=== PATIENT | male | born 1945 | race Caucasian/White ===

== ENCOUNTER 2017-11-23 12:24 | Emergency (ER) | payer MEDICARE, OTHER ==
[2017-11-23 12:40] VITALS: BP 140/71
[2017-11-23] MEDS ORDERED: Albuterol/Ipratropium NEB.SOL* Albuterol 2.5 MG/Ipratropium 0.5 MG 3 ML INH ONE (12:56)
--- NOTE | 2017-11-23 13:00 | ED ---
Respiratory - HPI Summary HPI Summary: 72 female presents with cough and shortness breath for the past 3 days. He states he has history of chronic bronchitis. He is nonsmoker. He denies any chest pain. No pain or swelling in calf muscles. No sore throat. He states that he has been wheezing for the past couple days. He states is worse with exertion. He does not have an inhaler. He states wheezing is worse at night. He states if catches the symptoms early he normally doesn't have many issues. has history of HTN and DM. - History of Current Complaint Chief Complaint: UCRespiratory Stated Complaint: COUGH CONGESTION Time Seen by Provider: 11/23/17 12:46 Pain Intensity: 5 - Allergy/Home Medications Allergies/Adverse Reactions: Allergies Allergy/AdvReac Type Severity Reaction Status Date / Time No Known Allergies Allergy Verified 11/23/17 12:40 Home Medications: Home Medications Aspirin 81 mg CHEW TAB* [Aspirin Low Dose TAB*] 81 mg PO DAILY 11/23/17 [ History Confirmed 11/23/17] Losartan/Hydrochlorothiazide [Losartan-Hctz 100-12.5 mg Tab] 1 mg PO DAILY WITH MEAL 11/23/17 [History Confirmed 11/23/17] Rosuvastatin Calcium [Crestor] 20 mg PO DAILY WITH MEAL 11/23/17 [History Confirmed 11/23/17] celeCOXIB CAP* [CeleBREX CAP*] 100 mg PO DAILY 11/23/17 [History Confirmed 11/23] hydroCHLOROthiazide [Hydrochlorothiazide] 12.5 mg PO DAILY WITH MEAL 11/23/17 [ History Confirmed 11/23/17] PMH/Surg Hx/FS Hx/Imm Hx Endocrine/Hematology History: Reports: Hx Diabetes - type II Denies: Hx Thyroid Disease Cardiovascular History: Reports: Hx Hypertension Respiratory History: Denies: Hx Asthma GI History: Denies: Hx Ulcer - Surgical History Surgery Procedure, Year, and Place: rt ankle 06/12/14 fusion fibula graft. pt. type 2 dibetic. bilat hip replacements Infectious Disease History: No Infectious Disease History: Denies: Hx Hepatitis, Hx Human Immunodeficiency Virus (HIV), History Other Infectious Disease, Traveled Outside the [place] in Last 30 Days - Family History Known Family History: Positive: None Negative: Respiratory Disease - Social History Alcohol Use: Occasionally Substance Use Type: Reports: None Smoking Status (MU): Never Smoked Tobacco Review of Systems Negative: Fever Negative: Chest Pain Positive: Shortness Of Breath, Cough All Other Systems Reviewed And Are Negative: Yes Physical Exam Triage Information Reviewed: Yes Vital Signs On Initial Exam: Initial Vitals Temp Pulse Resp BP Pulse Ox 97.9 F 86 22 140/71 97 11/23/17 12:35 11/23/17 12:35 11/23/17 12:35 11/23/17 12:35 11/23/17 12:35 Vital Signs Reviewed: Yes Appearance: Positive: Well-Appearing Skin: Positive: Warm, Dry Head/Face: Positive: Normal Head/Face Inspection Eyes: Positive: Normal, EOMI, LUZ MARIA, Conjunctiva Clear ENT: Positive: Normal ENT inspection, Pharynx normal, TMs normal Respiratory/Lung Sounds: Positive: Breath Sounds Present, Wheezes Cardiovascular: Positive: Normal, RRR Abdomen Description: Positive: Nontender, Soft Bowel Sounds: Positive: Present Musculoskeletal: Positive: Normal Neurological: Positive: Normal Psychiatric: Positive: Normal Diagnostics - Vital Signs Vital Signs Temp Pulse Resp BP Pulse Ox 11/23/17 12:35 97.9 F 86 22 140/71 97 - Laboratory Lab Statement: Any lab studies that have been ordered have been reviewed, and results considered in the medical decision making process. - Radiology chest Xray Interpretation: No Acute Changes Radiology Interpretation Completed By: Radiologist Re-Evaluation - Re-Evaluation First Eval Re-Evaluation Time: 13:29 Change: Improved Comment: slight wheeze after treatment Disposition - Course Course Of Treatment: 72 female presents with cough and shortness breath for the past 3 days. He states he has history of chronic bronchitis. He is nonsmoker. He denies any chest pain. No pain or swelling in calf muscles. No sore throat. He states that he has been wheezing for the past couple days. He states is worse with exertion. He does not have an inhaler. He states wheezing is worse at night. on exam heart RRR. wheezing present. gave duoneb and improved. chest xray shows NAD. will give steriod and inhaler and azithrymoycin. told steriod will increase blood sugar. will have follow up with primary about blood pressure as has dx of htn. patient understand and agrees with plan. - Differential Dx - Cardiopulmonary Differential Diagnoses - Cardiopulmonary: Bronchitis, CHF, Influenza, Lower Resp Infection - Diagnoses Provider Diagnoses: Bronchitis Discharge - Sign-Out/Discharge Documenting (check all that apply): Patient Departure - Discharge Plan Condition: Good Disposition: HOME Prescriptions: Albuterol HFA INHALER* [Ventolin HFA Inhaler*] 2 puff INH Q4H PRN #1 mdi PRN Reason: Wheezing Azithromycin TAB* [Zithromax TAB (Z-GO) 250 mg #6 tabs] 2 tab PO .TODAY, THEN 1 DAILY #1 go predniSONE TAB* [Deltasone TAB*] 50 mg PO DAILY #4 tab Patient Education Materials: Acute Bronchitis (ED) Referrals: Julieta Mensah MD [Primary Care Provider] - Additional Instructions: Use inhaler up to two puffs every 4 hours for cough and wheezing Take steroid once a day for 5 days Take antibiotic two tablets day one, one tablet day 2-5 Take Tylenol for pain every 6 hours Follow up with primary within 5 days Return to ED if develop severe shortness of breath, worsening chest pain, or any new or worsening symptoms - Billing Disposition and Condition Condition: GOOD Disposition: Home Attestation Statement User Type: Provider - I was available for consult. This patient was seen by the [facility]. The patient was not presented to, seen by, or examined by me. -Cyril
--- NOTE | 2017-11-23 13:20 | RAD ---
Indication: Cough, shortness of breath. 2 views of the chest including dual energy PA views demonstrate no mediastinal shift. Heart is of normal size and configuration. When compared to previous exam of August 20, 2011 no significant change is noted. IMPRESSION: No active disease is noted. No changes noted since August 20, 2011.
[2017-11-23] MEDS ORDERED: methylPREDNISolone 125 MG* 2 ML VIAL IM ONE (13:27)
== END 2017-11-23 13:42 | disposition home or self-care (01) ==
LOC: UCEAST 12:24
DX: J40 Bronchitis, not specified as acute or chronic (principal); I10 Essential (primary) hypertension; Z79.82 Long term (current) use of aspirin
CPT/HCPCS: 71046; 96372; 99212; A9270-GY; G0463; J2930

== ENCOUNTER 2017-12-26 13:12 | Emergency (ER) | payer MEDICARE ==
[2017-12-26 13:55] VITALS: BP 136/87
--- NOTE | 2017-12-26 14:30 | UC ---
Respiratory Complaint HPI - HPI Summary HPI Summary: Pleasant 72 yo gentleman c/o progressive worse cough, wheezing, green productive sputum over the last 2-3 weeks. Presents today b/c not better, getting worse, hard to sleep through the night. Without pnd. No fever. No GI issues. Recently exposed to poison sumac, has been using a relative's triamcinolone cream, requests refill. Recently completed azithromycin last month for similar sx, sx improved but returned after several days. Albuterol has helped, nearly out. No issues with blood sugars, reports that they have been "running ok." - History of Current Complaint Chief Complaint: UCRespiratory Stated Complaint: CHEST CONGESTION Time Seen by Provider: 12/26/17 14:03 Hx Obtained From: Patient Pain Intensity: 0 - Allergies/Home Medications Allergies/Adverse Reactions: Allergies Allergy/AdvReac Type Severity Reaction Status Date / Time poison sumac extract Allergy Rash Verified 12/26/17 13:38 PMH/Surg Hx/FS Hx/Imm Hx - Additional Past Medical History Additional PMH: + DM, + hx pneumonia, + hx bronchitis, + bilat hip replacement ,+ R ankle fusion years ago, wears afo Previously Healthy: No - see above - Surgical History Surgical History: Yes Surgery Procedure, Year, and Place: rt ankle 06/12/14 fusion fibula graft. pt. type 2 dibetic. bilat hip replacements - Family History Known Family History: Positive: None Negative: Respiratory Disease - Social History Alcohol Use: Occasionally Substance Use Type: None Smoking Status (MU): Never Smoked Tobacco Review of Systems Constitutional: Negative Skin: Other - see hpi Eyes: Negative ENT: Other - cerumen full Respiratory: Shortness Of Breath, Cough Gastrointestinal: Negative Genitourinary: Negative Motor: Other - no new issues, + chronic issues Neurovascular: Negative Musculoskeletal: Negative - none new Neurological: Negative Psychological: Negative Is Patient Immunocompromised?: No All Other Systems Reviewed And Are Negative: Yes Physical Exam Triage Information Reviewed: Yes Appearance: Well-Appearing, Well-Nourished Vital Signs: Initial Vital Signs Temp 98.3 F 12/26/17 13:50 Pulse 72 12/26/17 13:50 Resp 18 12/26/17 13:50 BP 136/87 12/26/17 13:50 Pulse Ox 99 12/26/17 13:50 Vital Signs Reviewed: Yes Neck exam: Normal Respiratory Exam: Other - no stridor, no rhonchi, exp>insp wheeze Respiratory: Positive: No respiratory distress, No accessory muscle use, Wheezing Cardiovascular Exam: Normal Cardiovascular: Positive: RRR, No Murmur, Pulses Normal, Brisk Capillary Refill Abdominal Exam: Normal Abdomen Description: Positive: Nontender Musculoskeletal Exam: Other - R ankle splint, not examined. Self ambulates. Moves x 4 ext's. Neurological Exam: Normal - grossly nonfocal Psychological Exam: Normal - conversing easily and appropriately Skin Exam: Other - good cap refill. Mild dermatitis scattered on back, c/w topical exposure UC Diagnostic Evaluation - Laboratory O2 Sat by Pulse Oximetry: 99 Respiratory Course/Dx - Course Course Of Treatment: CXR ordered. Has appt with PCP at [facility] tomorrow afternoon, advised to keep this appt. Refill triamcinolone, albuterol. Chest xray reviewed. D/w Mr. Schwartz. Without pneumonia. Rx ciprofloxacin, prednisone taper, d/w pt. Questions as posed answered to the best of my ability. - Differential Dx/Diagnosis Provider Diagnoses: Acute bronchitis with wheezing. Dermatitis Discharge - Sign-Out/Discharge Documenting (check all that apply): Patient Departure All imaging exams completed and their final reports reviewed: Yes - Discharge Plan Condition: Stable Disposition: HOME Prescriptions: Albuterol HFA INHALER* [Ventolin HFA Inhaler*] 1 - 2 puff INH Q4H PRN #1 mdi PRN Reason: Wheezing Ciprofloxacin TAB* [Cipro 500 MG TAB*] 500 mg PO BID #14 tab predniSONE TAB* [Deltasone 10 MG TAB*] 10 mg PO DAILY #20 tab Triamcinolone 0.1% CREAM (NF) [Kenalog 0.1% Cream (NF)] 1 applic TOPICAL BID #1 tube Patient Education Materials: Acute Bronchitis (ED), Reactive Airways Disease ( ED), Wheezing (ED) Referrals: Julieta Mensah MD [Primary Care Provider] - Additional Instructions: Follow up with your primary care physician, this week as scheduled. Seek medical attention for worse or new problems. Drink plenty of water. Check your blood sugars frequently; prednisone will increase your blood glucose , so pay close attention to blood glucose. - Billing Disposition and Condition Condition: STABLE Disposition: Home
--- NOTE | 2017-12-26 14:38 | RAD ---
HISTORY: progressive worse cough, wheeze COMPARISONS: November 23, 2017 VIEWS: 4: Frontal dual-energy and lateral views of the chest. FINDINGS: CARDIOMEDIASTINAL SILHOUETTE: The aorta is tortuous. The cardiomediastinal silhouette is otherwise unremarkable. MADDY: The maddy are normal. PLEURA: The costophrenic angles are sharp. No pleural abnormalities are noted. LUNG PARENCHYMA: The lungs are clear. ABDOMEN: The upper abdomen is clear. There is no subphrenic gas. BONES AND SOFT TISSUES: Degenerative changes are noted along the spine. OTHER: None. IMPRESSION: NO ACTIVE CARDIOPULMONARY DISEASE.
== END 2017-12-26 15:25 | disposition home or self-care (01) ==
LOC: UCEAST 13:12
DX: J20.9 Acute bronchitis, unspecified (principal); L30.9 Dermatitis, unspecified; Z96.643 Presence of artificial hip joint, bilateral
CPT/HCPCS: 71046; 99212; G0463

== ENCOUNTER 2018-02-21 13:18 | Emergency (ER) | payer MEDICARE ==
[2018-02-21 13:28] VITALS: BP 147/85
--- NOTE | 2018-02-21 14:07 | RAD ---
HISTORY: COUGH, PLEURITIC PAIN COMPARISONS: December 26, 2017 VIEWS: 4: Frontal dual-energy and lateral views of the chest. FINDINGS: CARDIOMEDIASTINAL SILHOUETTE: The aorta is tortuous. The cardiomediastinal silhouette is otherwise unremarkable. MADDY: The maddy are normal. PLEURA: The costophrenic angles are sharp. No pleural abnormalities are noted. LUNG PARENCHYMA: The lungs are clear. ABDOMEN: The upper abdomen is clear. There is no subphrenic gas. BONES AND SOFT TISSUES: Degenerative changes are noted along the spine. OTHER: None. IMPRESSION: NO ACTIVE CARDIOPULMONARY DISEASE.
--- NOTE | 2018-02-21 14:32 | UC ---
Respiratory Complaint HPI - HPI Summary HPI Summary: Patient complaining of bronchitis symptoms - cough, chest congestion, wheeze - for the past 3 months. On 11/23/17 was treated with a Z-Terence and prednisone. On he was treated with Cipro and prednisone. On 01/29/18 he was treated with doxycycline. Patient states his symptoms improve a little bit after each round of antibiotics but then return. He states he is not getting worse but he is certainly not improving. Over the past couple of days he has developed pleuritic pain in his left mid back. He denies chest pain, nausea/vomiting but does endorse some shortness of breath and wheeze. No fever. Oxygen saturation is normal. Patient is a nonsmoker. - History of Current Complaint Chief Complaint: UCRespiratory Stated Complaint: CHEST CONGESTION COUGH Time Seen by Provider: 02/21/18 13:50 Hx Obtained From: Patient Onset/Duration: Gradual Onset, Lasting Weeks Timing: Constant Severity Initially: Moderate Severity Currently: Moderate Pain Intensity: 8 Pain Scale Used: 0-10 Numeric Character: Cough: Productive Aggravating Factors: Exertion, Recumbent Position Alleviating Factors: Bronchodilator Associated Signs And Symptoms: Positive: Dyspnea, Wheezing, Nasal Congestion - Allergies/Home Medications Allergies/Adverse Reactions: Allergies Allergy/AdvReac Type Severity Reaction Status Date / Time poison sumac extract Allergy Rash Verified 02/21/18 13:28 Home Medications: Home Medications Amlodipine Besylate/Benazepril [Amlodipine Besylate/Benaz 5-40 mg-] 1 tab PO DAILY 02/21/18 [History Confirmed 02/21/18] Finasteride 5 mg PO DAILY 02/21/18 [History Confirmed 02/21/18] Glipizid/Metformin 2.5/500(NF) [Metaglip 2.5/500(NF)] 1 tab PO BID 02/21/18 [ History Confirmed 02/21/18] Ibuprofen 200 mg PO DAILY 02/21/18 [History Confirmed 02/21/18] Terbinafine [Lamisil At] 02/21/18 [History] Zolpidem TAB* [Ambien*] 5 mg PO BEDTIME PRN 02/21/18 [History Confirmed 02/21/18 ] PMH/Surg Hx/FS Hx/Imm Hx Endocrine History: Diabetes Cardiovascular History: Hypertension Other GI/ History: BPH - Surgical History Surgical History: Yes Surgery Procedure, Year, and Place: rt ankle 06/12/14 fusion fibula graft. pt. type 2 dibetic. bilat hip replacements - Family History Known Family History: Positive: None Negative: Respiratory Disease - Social History Alcohol Use: Occasionally Substance Use Type: None Smoking Status (MU): Never Smoked Tobacco Review of Systems Constitutional: Negative Respiratory: Shortness Of Breath, Cough, Other - WHEEZE, CONGESTION Cardiovascular: Negative Gastrointestinal: Negative All Other Systems Reviewed And Are Negative: Yes Physical Exam Triage Information Reviewed: Yes Appearance: Well-Appearing, No Pain Distress, Well-Nourished Vital Signs: Initial Vital Signs Temp 98.2 F 02/21/18 13:23 Pulse 94 02/21/18 13:23 Resp 18 02/21/18 13:23 BP 147/85 02/21/18 13:23 Pulse Ox 98 02/21/18 13:23 Vital Signs Reviewed: Yes Eyes: Positive: Conjunctiva Clear ENT: Positive: Hearing grossly normal Neck: Positive: Supple, Nontender, No Lymphadenopathy Respiratory: Positive: No respiratory distress, No accessory muscle use, Wheezing - MILD DIFFUSE EXPIRATORY WHEEZE Cardiovascular Exam: Normal Abdomen Description: Positive: Soft Musculoskeletal: Positive: No Edema Neurological: Positive: Alert Psychological: Positive: Age Appropriate Behavior Skin: Negative: rashes UC Diagnostic Evaluation - Laboratory O2 Sat by Pulse Oximetry: 98 - Radiology Radiology Interpretation Completed By: Radiologist Summary of Radiographic Findings: CXR UNREMARKABLE Respiratory Course/Dx - Differential Dx/Diagnosis Provider Diagnoses: BRONCHITIS/WHEEZE Discharge - Sign-Out/Discharge Documenting (check all that apply): Patient Departure All imaging exams completed and their final reports reviewed: Yes - Discharge Plan Condition: Stable Disposition: HOME Patient Education Materials: Acute Bronchitis (ED), Wheezing (ED) Referrals: Julieta Mensah MD [Primary Care Provider] - If Needed Katie Perez MD [Medical Doctor] - 1 Day Additional Instructions: CHEST X-RAY TODAY READ UNREMARKABLE. YOU HAVE HAD 3 ROUNDS OF ANTIBIOTICS, 2 ROUNDS OF STEROIDS AND YOUR SYMPTOMS ARE PERSISTENT. I WOULD HESITATE TO PUT YOU ON A FOURTH ROUND OF ANTIBIOTICS. AT THIS STAGE YOU MAY BENEFIT FROM MORE ADVANCED IM[facility] AND A PULMONOLOGY CONSULT. WE HAVE FAXED YOUR DEMOGRAPHIC INFORMATION ALONG WITH THE PROGRESS NOTE FROM TODAY'S VISIT TO DR. PEREZ'S OFFICE. THEY SHOULD BE CALLING YOU TODAY OR TOMORROW TO SCHEDULE AN APPOINTMENT. IF YOU DO NOT HEAR FROM THEM PLEASE CALL US HERE TO ASSIST YOU IN THIS MATTER. PLEASE GO TO THE ED WITHOUT FAIL IF YOU DEVELOP WORSENING SHORTNESS OF BREATH, CHEST PAIN, FEVER, DIZZINESS OR ANY OTHER CONCERNING SYMPTOMS. - Billing Disposition and Condition Condition: STABLE Disposition: Home
== END 2018-02-21 14:36 | disposition home or self-care (01) ==
LOC: UCEAST 13:18
DX: J40 Bronchitis, not specified as acute or chronic (principal); E11.9 Type 2 diabetes mellitus without complications; Z79.84 Long term (current) use of oral hypoglycemic drugs; I10 Essential (primary) hypertension; N40.0 Benign prostatic hyperplasia without lower urinary tract symptoms; Z96.643 Presence of artificial hip joint, bilateral
CPT/HCPCS: 71046; 99211; G0463

== ENCOUNTER 2018-04-13 14:37 | Emergency (ER) | payer MEDICARE ==
--- NOTE | 2018-04-13 18:25 | ED ---
Respiratory - HPI Summary HPI Summary: 73-year-old male presents with acute on chronic cough for the past couple days. He states he has a history of bronchitis since November and has been under multiple antibiotics. His last antibiotic was 6-8 weeks ago. He states he is being followed up by Dr. landers. He states that last night the cough became worse. He feels that his chest is tight though. He admits to shortness breath. He admits abdominal pain from coughing. No nausea vomiting. He admits to sinus congestion and a sore throat. Sore throat as resolved. No headache or dizziness. is not a Smoker. Currently has been using an inhaler. He states the inhaler helps. No one else is sick. He admits to low-grade fever. Has a history of diabetes. - History of Current Complaint Chief Complaint: EDChestWallPain Stated Complaint: TROUBLE BREATHING POSSIBLE INFECTION Time Seen by Provider: 04/13/18 17:58 Pain Intensity: 2 - Allergy/Home Medications Allergies/Adverse Reactions: Allergies Allergy/AdvReac Type Severity Reaction Status Date / Time poison sumac extract Allergy Rash Verified 04/13/18 14:48 Home Medications: Home Medications Acetaminophen [Tylenol Extra Strength] 500 - 1,000 mg PO Q8HR PRN 04/13/18 [ History Confirmed 04/13/18] Saxagliptin HCl (Nf) [Onglyza (NF)] 2.5 mg PO DAILY 04/13/18 [History Confirmed 04/13/18] PMH/Surg Hx/FS Hx/Imm Hx Endocrine/Hematology History: Reports: Hx Diabetes - type II Denies: Hx Anticoagulant Therapy, Hx Thyroid Disease Cardiovascular History: Reports: Hx Hypertension Respiratory History: Reports: Other Respiratory Problems/Disorders - chronic bronchitis Denies: Hx Asthma, Hx Chronic Obstructive Pulmonary Disease (COPD) GI History: Denies: Hx Ulcer - Surgical History Surgery Procedure, Year, and Place: rt ankle 06/12/14 fusion fibula graft. pt. type 2 dibetic. bilat hip replacements Infectious Disease History: No Infectious Disease History: Denies: Hx Hepatitis, Hx Human Immunodeficiency Virus (HIV), History Other Infectious Disease, Traveled Outside the [place] in Last 30 Days - Family History Known Family History: Positive: None Negative: Respiratory Disease - Social History Alcohol Use: Occasionally Substance Use Type: Reports: None Hx Tobacco Use: No Smoking Status (MU): Never Smoked Tobacco Review of Systems Negative: Fever Negative: Chest Pain Positive: Shortness Of Breath, Cough Negative: Abdominal Pain All Other Systems Reviewed And Are Negative: Yes Physical Exam Triage Information Reviewed: Yes Vital Signs On Initial Exam: Initial Vitals Temp Pulse Resp BP Pulse Ox 97.9 F 92 16 150/76 95 04/13/18 14:41 04/13/18 14:41 04/13/18 14:41 04/13/18 14:41 04/13/18 14:41 Vital Signs Reviewed: Yes Appearance: Positive: Well-Appearing Skin: Positive: Warm, Dry Head/Face: Positive: Normal Head/Face Inspection Eyes: Positive: Normal, EOMI, LUZ MARIA, Conjunctiva Clear ENT: Positive: Normal ENT inspection, Pharynx normal, TMs normal Respiratory/Lung Sounds: Positive: Breath Sounds Present, Wheezes - mild Cardiovascular: Positive: Normal, RRR Abdomen Description: Positive: Nontender, Soft Bowel Sounds: Positive: Present Musculoskeletal: Positive: Normal Neurological: Positive: Normal Psychiatric: Positive: Normal Diagnostics - Vital Signs Vital Signs Temp Pulse Resp BP Pulse Ox 04/13/18 14:41 97.9 F 92 16 150/76 95 - Laboratory Result Diagrams: 04/13/18 18:19 04/13/18 18:19 Lab Statement: Any lab studies that have been ordered have been reviewed, and results considered in the medical decision making process. - CT chest CT Interpretation Completed By: Radiologist Summary of CT Findings: IMPRESSION: 1. There is a region of consolidation as well as interstitial opacity and. nodular opacities in the right upper lobe suspicious for pneumonitis, possible. atypical pneumonitis with the largest of the nodular opacities measuring up to. 2.5 cm diameter. There is an additional indeterminate right middle lobe. pulmonary nodule measuring 1 cm.For low and high risk patients, CT at 3-6. months, then consider CT at 18-24 months. For high risk patients, consider CT. at 3-6 months, then CT at 18-24 months. 2. No visible acute pulmonary embolism. 3. There is borderline mediastinal and right hilar lymphadenopathy. - EKG No standard instances Cardiac Rate: NL EKG Rhythm: Sinus Rhythm Summary of EKG Findings: sinus rhythm, anteroseptal infarct old Re-Evaluation - Re-Evaluation First Eval Re-Evaluation Time: 19:34 Change: Improved Comment: feeling better after treatment Second Eval Re-Evaluation Time: 22:05 Change: Improved Comment: did not destat when walked around, patient feels comfortable going home Disposition - Course Course Of Treatment: 73 year old male presents with worsening cough for the past day. He states he's been on multiple antibiotics to try to treat cough. The cough is worse since last night. He notes occasional shortness breath. No chest pain. He is not a smoker. Has history of diabetes. On exam mild wheezing noted. Pharynx normal abdomen soft nontender. Sinus congestion noted. White blood cell count normal. D-dimer is elevated. EKG shows sinus rhythm. cta chest shows pneumonitis. discussed case with dr plaza. will place on levaquin and have follow up with pulmonology. gave inhaler. vitals stable and patient feels comfortable with discharge. warned is spikes fevers or worsening sob to return. patient understand and agrees with plan. - Differential Dx - Cardiopulmonary Differential Diagnoses - Cardiopulmonary: Bronchitis, Lower Resp Infection, Pulmonary Embolism - Diagnoses Provider Diagnoses: Pneumonitis Discharge - Sign-Out/Discharge Documenting (check all that apply): Patient Departure - Discharge Plan Condition: Good Disposition: HOME Prescriptions: Albuterol HFA INHALER* [Ventolin HFA Inhaler*] 2 puff INH Q4H PRN #1 mdi PRN Reason: Wheezing Levofloxacin TAB* [Levaquin TAB*] 750 mg PO DAILY #6 tab Patient Education Materials: Pneumonia (ED) Referrals: Julieta Mensah MD [Primary Care Provider] - Katie Landers MD [Medical Doctor] - Additional Instructions: Use inhaler up to two puffs every 4 hours for cough and wheezing Take antibiotic once daily starting tomorrow for 6 days Take Tylenol every 6 hours Follow up with dr landers as scheduled Return to ED if develop severe shortness of breath, worsening chest pain, or any new or worsening symptoms - Billing Disposition and Condition Condition: GOOD Disposition: Home
[2018-04-13 18:34] LABS: ABS Basophils 0 10^3/ul (0-0.2); ABS Eosinophils 0.2 10^3/ul (0-0.6); ABS Lymphocytes 1.7 10^3/ul (1.0-4.8); ABS Monocytes 0.7 10^3/ul (0-0.8); ABS Neutrophils 5.9 10^3/ul (1.5-7.7); ABS Nucleated RBC 0 10^3/ul; Eosinophil % 2.7 %; Hematocrit 36 % (42-52); Hemoglobin 12.6 g/dl (14.0-18.0); Lymphocyte % 19.9 %; Mean Corpuscular HGB Conc 35 g/dl (31-36); Mean Corpuscular Hemoglobin 30 pg (27-31); Mean Corpuscular Volume 85 fL (80-94); Mean Platelet Volume 6.9 fL (7.4-10.4); Nucleated Red Blood Cells % 0.1; Platelet Count 267 10^3/ul (150-450); Red Blood Count 4.16 10^6/ul (4.00-5.40); Red Cell Distribution Width 13 % (10.5-15); White Blood Count 8.6 10^3/ul (3.5-10.8)
[2018-04-13 18:55] LABS: Albumin 4.1 g/dL (3.2-5.2); Albumin/Globulin Ratio 1.4 (1-3); C Reactive Protein 37.24 mg/L (<8.01); Calcium 9.6 mg/dL (8.6-10.3); EGFR Non-African American 100.3 (>60); Globulin 2.9 g/dL (2-4); Magnesium 1.4 mg/dL (1.9-2.7); Potassium 3.6 mmol/L (3.5-5.0); Total Bilirubin 0.5 mg/dL (0.2-1.0)
[2018-04-13] MEDS: Albuterol/Ipratropium NEB.SOL* Albuterol 2.5 MG/Ipratropium 0.5 MG 3 ML INH ONE (19:04)
[2018-04-13] MEDS ORDERED: Magnesium Chloride EC TAB* 64 MG PO ONE (19:06)
[2018-04-13] MEDS: Iodixanol* (CONTRAST) 320 MG/ML 100 ML SDV IV ONE (20:03)
[2018-04-13] MEDS: Magnesium Sulfate 2 GM IV* 2 GM/50 ML BAG IVPB ONE (21:00)
[2018-04-13] MEDS ORDERED: Levofloxacin 750 MG IVPREMIX(* 750 MG/150 ML BAG IVPB ONE (21:04)
[2018-04-13] MEDS: Levofloxacin TAB* 250 MG PO ONE (22:22)
[2018-04-13] MEDS: A lbuterol Hfa (PREPAK) 1 MDI - ED TAKE HOME DISPENSING ONLY INHH ONE (22:23)
[2018-04-13 22:30] VITALS: BP 137/89
== END 2018-04-13 22:29 | disposition home or self-care (01) ==
LOC: ED 14:37
DX: J18.9 Pneumonia, unspecified organism (principal); I10 Essential (primary) hypertension; E11.9 Type 2 diabetes mellitus without complications
CPT/HCPCS: 36415; 71275; 80053; 83605; 83735; 83880; 84484; 85025; 85379; 86140; 87040; 87070; 87205; 93005; 96374; 96375; 99283; A9270-GY; J3475; Q9967

== ENCOUNTER 2018-10-27 19:41 | Emergency (ER) | payer MEDICARE ==
--- NOTE | 2018-10-27 21:15 | ED ---
Syncope/Near Syncope - HPI Summary HPI Summary: The patient is a 73 y/o M presenting to [facility] with a chief complaint of sudden onset near syncope at 1700. He reports that he was outside grilling with friends and drinking a beer when he began to feel dizzy. He then started to have a syncopal episode, but his friends caught him before he hit his head. There is some LOC with the event, but he remembers most of it. He notes that he also became pale and diaphoretic, but he denies fever, chills, SOB, CP, palpitations, cough, vision changes, motor changes, numbness, and new edema. He also reports left eye erythema. He thought the event was secondary to a sudden change in blood glucose as he is Type II diabetic, but he went to [facility] before the ED, and his glucose was normal. He reports that he's had occasional CP that radiates into the neck and jaw over the past few weeks while lying down , but it was not present today. He had a nuclear stress test within the last two years. Hx of DM type II, HTN, chronic bronchitis. Nonsmoker, occasional EtOH , no substance use. - History Of Current Complaint Chief Complaint: EDSyncope Time Seen by Provider: 10/27/18 20:56 Hx Obtained From: Patient Onset/Duration: Sudden Onset, Lasting Minutes, Resolved Timing: Minutes Context: Witnessed Activity At Onset: Other - grilling Associated Head Trauma: No Aggravating Factor(s): Nothing Alleviating Factor(s): Nothing Associated Signs And Symptoms: Other - POSITIVE: dizziness, pale, diaphoresis, left eye erythema, some LOC with syncope; NEGATIVE: fever, chills, SOB, CP, palpitations, cough, vision changes, motor changes, numbness, new edema - Allergies/Home Medications Allergies/Adverse Reactions: Allergies Allergy/AdvReac Type Severity Reaction Status Date / Time poison sumac extract Allergy Rash Verified 04/13/18 14:48 PMH/Surg Hx/FS Hx/Imm Hx Endocrine/Hematology History: Reports: Hx Diabetes - type II Denies: Hx Anticoagulant Therapy, Hx Thyroid Disease Cardiovascular History: Reports: Hx Hypertension Respiratory History: Reports: Other Respiratory Problems/Disorders - chronic bronchitis Denies: Hx Asthma, Hx Chronic Obstructive Pulmonary Disease (COPD) GI History: Denies: Hx Ulcer - Surgical History Surgery Procedure, Year, and Place: rt ankle 06/12/14 fusion fibula graft. pt. type 2 dibetic. bilat hip replacements Infectious Disease History: No Infectious Disease History: Denies: Hx Hepatitis, Hx Human Immunodeficiency Virus (HIV), History Other Infectious Disease, Traveled Outside the [place] in Last 30 Days - Family History Known Family History: Positive: Diabetes Negative: Respiratory Disease - Social History Alcohol Use: Occasionally Hx Substance Use: No Substance Use Type: Reports: None Hx Tobacco Use: No Smoking Status (MU): Never Smoked Tobacco Review of Systems Positive: Skin Diaphoresis. Negative: Fever, Chills Positive: Erythema - left, Other. Negative: Blurred Vision Negative: Palpitations, Chest Pain Negative: Shortness Of Breath Negative: Edema Positive: Other - pale Neurological: Other - POSITIVE: dizziness; NEGATIVE: motor changes Positive: Syncope - some LOC. Negative: Headache, Numbness All Other Systems Reviewed And Are Negative: Yes Physical Exam - Summary Physical Exam Summary: Constitutional: Well-developed, Well-nourished, Alert. (-) Distressed Skin: Warm, Dry HENT: Normocephalic; Atraumatic Eyes: Conjunctiva normal Neck: Musculoskeletal ROM normal neck. (-) JVD, (-) Stridor, (-) Tracheal deviation Cardio: Rhythm regular, rate normal, Heart sounds normal; Intact distal pulses; The pedal pulses are 2+ and symmetric. Radial pulses are 2+ and symmetric. (-) Murmur Pulmonary/Chest wall: Effort normal. (-) Respiratory distress, (-) Wheezes, (-) Rales Abd: Soft, (-) tenderness, (-) Distension, (-) Guarding, (-) Rebound Musculoskeletal: (-) Edema Lymph: (-) Cervical adenopathy Neuro: Alert, Oriented x3 Psych: Mood and affect Normal Triage Information Reviewed: Yes Vital Signs On Initial Exam: Initial Vitals Temp Pulse Resp BP Pulse Ox 97.8 F 77 18 118/74 96 10/27/18 19:54 10/27/18 19:54 10/27/18 19:54 10/27/18 19:54 10/27/18 19:54 Vital Signs Reviewed: Yes Diagnostics - Vital Signs Vital Signs Temp Pulse Resp BP Pulse Ox 10/27/18 19:54 97.8 F 77 18 118/74 96 - Laboratory Result Diagrams: 10/27/18 21:57 10/27/18 21:57 Lab Statement: Any lab studies that have been ordered have been reviewed, and results considered in the medical decision making process. - Radiology CXR Radiology Interpretation Completed By: Radiologist Summary of Radiographic Findings: No acute process. ED physician has reviewed this imaging report. cxr Radiology Interpretation Completed By: Radiologist Summary of Radiographic Findings: No acute process. ED physician has reviewed this imaging report. - EKG 2000 Cardiac Rate: NL - 78 BPM EKG Rhythm: Sinus Rhythm EKG Comparison: No Significant Change - Unchanged from 04/13/2018 Summary of EKG Findings: Normal sinus rhythm at 78 bpm, prolonged AK, first degree AV block, normal QRS, normal QTc, normal axis, ST elevated in V1 and V2, normal T-waves, nonspecific Re-Evaluation - Re-Evaluation First Eval Re-Evaluation Time: 01:30 Comment: The patient reports that he has hx hypomagnemesia. Second Eval Re-Evaluation Time: 02:00 Comment: I discussed findings with the patient. We discussed discharge home. Course/Dx Course Of Treatment: The patient is a 73 y/o M presenting to [facility] with a chief complaint of sudden onset near syncope at 1700 with dizziness, pale pallor, and diaphoresis. He denies fever, chills, SOB, CP, palpitations, cough, vision changes, motor changes, numbness, and new edema. He thought the event was secondary to a sudden change in blood glucose as he is Type II diabetic, but glucose normal CERTIFIED MEDICAL AIDE. He reports that he's had occasional CP that radiates into the neck and jaw over the past few weeks while lying down, but it was not present today. Nuclear stress test within the last two years. Hx of DM type II, HTN, chronic bronchitis. Nonsmoker, occasional EtOH, no substance use. Upon physical exam, the patient exhibits no acute abnormalities. Blood work reveals RBCs of 4.13. hgb of 12.8, hct of 36, MPV of 7.1, BUN/Creatinine ratio of 26.0, glucose of 149, and magnesium of 1.4. UA is negative for infection. EKG reveals normal sinus rhythm at 78 bpm, prolonged AK, first degree AV block, normal QRS, normal QTc, normal axis, ST elevated in V1 and V2, normal T-waves, nonspecific. CXR reveals no acute process. In the ED course, the patient was administered magnesium sulfate. I spoke with Dr. Gomez, hospitalist, at [phone] concerning possible admission of the patient since he is near syncope and 73 y/o. He does not have a reason to admit the patient at this time. The patient is diagnosed with pre-syncope and hypomagnesemia. He agrees with discharge plan. - Diagnoses Provider Diagnoses: Pre-syncope, Hypomagnesemia - Physician Notifications Discussed Care of Patient With: Ramon Gomez - hospitalist Time Discussed With Above Provider: 00:03 Instructed by Provider To: Other - I spoke with Dr. Gomez concerning the patient. He does not believe the patient meets criteria for admission at this time. Discharge - Sign-Out/Discharge Documenting (check all that apply): Patient Departure - Patient will be discharged home. Patient Received Moderate/Deep Sedation with Procedure: No - Discharge Plan Condition: Stable Disposition: HOME Patient Education Materials: Hypomagnesemia (ED), Near Syncope (ED) Print Language: TAJIK Referrals: Julieta Mensah MD [Primary Care Provider] - - Billing Disposition and Condition Condition: STABLE Disposition: Home - Attestation Statements Document Initiated by Francis: Yes Documenting Scribe: Marilin Garza Provider For Whom Francis is Documenting (Include Credential): Dr. Terri Farley MD Scribe Attestation: Marilin Cole scribed for Dr. Terri Farley MD on 10/28/18 at 0825. Scribe Documentation Reviewed: Yes Provider Attestation: The documentation as recorded by the Marilin vences accurately reflects the service I personally performed and the decisions made by me, Dr. Terri Farley MD Status of Scribbarrera Document: Viewed
[2018-10-27] MEDS ORDERED: Lorazepam PYXIS KEY PRN (21:28)
[2018-10-27] MEDS ORDERED: LORazepam INJ* 2 MG/ML 1 ML VIAL IM ONE (21:28)
[2018-10-27] MEDS ORDERED: Morphine 4 MG/ML VIAL (1 ml) 4 MG/ML VIAL IM ONE (21:29)
[2018-10-27 22:05] LABS: ABS Eosinophils 0.1 10^3/ul (0-0.6); ABS Lymphocytes 1.3 10^3/ul (1.0-4.8); ABS Monocytes 0.5 10^3/ul (0-0.8); ABS Neutrophils 5.6 10^3/ul (1.5-7.7); Eosinophil % 1.3 %; Hematocrit 36 % (42-52); Hemoglobin 12.8 g/dL (14.0-18.0); Lymphocyte % 16.8 %; Mean Corpuscular HGB Conc 36 g/dL (31-36); Mean Corpuscular Hemoglobin 31 pg (27-31); Mean Corpuscular Volume 87 fL (80-94); Mean Platelet Volume 7.1 fL (7.4-10.4); Platelet Count 194 10^3/uL (150-450); Red Blood Count 4.13 10^6 /uL (4.18-5.48); Red Cell Distribution Width 14 % (10-15); White Blood Count 7.5 10^3/uL (3.5-10.8)
[2018-10-27 22:24] LABS: Albumin 4.3 g/dL (3.2-5.2); Albumin/Globulin Ratio 1.8 (1-3); Calcium 9.7 mg/dL (8.6-10.3); EGFR African American 119.5 (>60); EGFR Non-African American 98.8 (>60); Globulin 2.4 g/dL (2-4); Potassium 3.8 mmol/L (3.5-5.0); Total Bilirubin 0.7 mg/dL (0.2-1.0); Total Protein 6.7 g/dL (6.4-8.9)
[2018-10-27 22:27] LABS: Troponin I 0.01 ng/mL (<0.04)
[2018-10-28 00:46] LABS: Troponin I 0.01 ng/mL (<0.04)
[2018-10-28 01:07] LABS: Urine Appearance Cloudy; Urine Bilirubin Negative (Negative); Urine Blood Negative (Negative); Urine Color Yellow; Urine Glucose Negative (Negative); Urine Ketones Negative (Negative); Urine Nitrite Negative (Negative); Urine Protein Negative (Negative); Urine Specific Gravity 1.019 (1.010-1.030); Urine Urobilinogen Negative (Negative)
[2018-10-28 01:26] LABS: Magnesium 1.4 mg/dL (1.9-2.7)
[2018-10-28] MEDS ORDERED: Magnesium Sulfate 2 GM IV* 2 GM/50 ML BAG IVPB ONE (01:35)
[2018-10-28 02:54] VITALS: BP 142/77
== END 2018-10-28 02:53 | disposition home or self-care (01) ==
LOC: ED 19:41
DX: R55 Syncope and collapse (principal); E83.42 Hypomagnesemia; E11.9 Type 2 diabetes mellitus without complications; I10 Essential (primary) hypertension
CPT/HCPCS: 36415; 71045; 80053; 81003; 83605; 83735; 84484; 85025; 93005; 96372; 96374; 99284; J3475